=== PATIENT | male | born 1995 | race Asian ===

== ENCOUNTER 2018-12-10 11:13 | Observation (INO) ==
[2018-12-10] MEDS ORDERED: KETOROLAC TROMETHAMINE 15 MG/ML VIAL IV STA (11:27)
[2018-12-10] MEDS ORDERED: SODIUM CHLORIDE 0.9% 1000ML 1,000 ML IV SCH (11:30)
[2018-12-10 11:54] LABS: Basophils # (auto) 0.02 K/uL (0-0.2); Basophils % (auto) 0.2 %; Eosinophils # (auto) 0.02 K/uL (0-0.5); Eosinophils % (auto) 0.2 %; Hematocrit (blood only) 43.7 % (42-52); Hemoglobin 15.1 g/dL (14.0-18.0); Immature Granulocytes # (auto) 0.02 K/uL (0.00-0.02); Immature Granulocytes % (auto) 0.2 %; Lymphocytes % (auto) 9.7 %; Mean Corpuscular Hgb Conc 34.6 g/dL (32-36); Mean Corpuscular Volume 86.5 fL (80-100); Mean Platelet Volume 10.1 fL (7.4-10.4); Monocytes # (auto) 0.77 K/uL (0.11-0.59); Monocytes % (auto) 6.2 %; Neutrophils # (auto) 10.39 K/uL (1.4-6.5); Neutrophils % (auto) 83.5 %; Platelet Count 194 K/uL (130-400); RDW Coefficient of Variation 12.5 % (11.5-14.5); RDW Standard Deviation 39.4 fL (36.4-46.3); Red Blood Count 5.05 M/uL (4.7-6.1); White Blood Count 12.42 K/uL (4.8-10.8)
[2018-12-10 12:12] LABS: Albumin Level 4.2 gm/dl (3.4-5.0); BUN Creatinine Ratio 14.4 (10-20); Calcium 8.8 mg/dl (8.5-10.1); Est GFR (African American) 141.7; Est GFR (Non-African American) 122.2; Potassium 3.2 mmol/L (3.5-5.1)
[2018-12-10 12:14] LABS: Albumin Globulin Ratio 1.2 (0.9-2); Bilirubin,Total 0.8 mg/dl (0.2-1); Globulin 3.4 gm/dl (2.5-4.0); Total Protein 7.6 gm/dl (6.4-8.2)
[2018-12-10 13:11] LABS: Appearance Urine Clear (Clear); Bilirubin Urine Negative (Negative); Color Urine Yellow; Glucose Urine UA Negative (Negative); Ketones Urine 1+ (Negative); Leukocyte Esterase Urine Negative (Negative); Nitrite Urine Negative (Negative); Protein Urine Negative (Negative); Specific Gravity Urine 1.016 (1.000-1.030); Urobilinogen Urine Negative (Negative); pH Urine 7.5 (4.5-7.5)
[2018-12-10] MEDS ORDERED: IOVERSOL 100ml IV PRN (14:16)
--- NOTE | 2018-12-10 14:34 | CT Scan Report ---
CT abd pelvis oral and IV con CLINICAL HISTORY: rlq abd pain COMPARISON STUDY: None. TECHNIQUE: The patient was scanned following administration of dilute oral contrast, and in a dynamic helical fashion during intravenous administration of 94 cc of Optiray 320. A dose lowering techniqu e was utilized adhering to the principles of ALARA. CT DOSE: 286.19 mGy.cm FINDINGS: Lower chest: The heart is normal in size and configuration, without pericardial effusion. The lung ba ses and pleural spaces are clear. Liver: There is minimal periportal edema, likely secondary to hydration. There is a left lobe calcifi cation. There are no hepatic masses. Gallbladder: There is trace pericholecystic fluid. No calculi are visualized. The gallbladder is not distended Spleen: Normal in size and attenuation. Pancreas: Unremarkable. Adrenal glands: Unremarkable. Kidneys: There is symmetric renal cortical enhancement. The kidneys are normal in size without hydron ephrosis. Bowel: There are no transition zones indicate bowel obstruction. There is a mildly dilated fluid-fill ed appendix measuring 8.6 mm. There are significant periappendiceal inflammatory changes. In the sett ing of right lower quadrant abdominal pain, the findings of a mildly dilated fluid-filled appendix mu st be be viewed as suspicious for an early acute appendicitis. Clinical correlation this regard is ad vocated. Peritoneum: There is a small amount of free pelvic fluid. There is no free intraperitoneal air. Vasculature: The abdominal aorta is normal in course and caliber. Adenopathy: None. Pelvic viscera: The bladder, and pelvic viscera are unremarkable. Skeletal structures: No destructive osseous lesions are seen. IMPRESSION: 1. Mildly dilated fluid-filled appendix measuring 8.6 mm in maximal diameter. Despite the absence of significant periappendiceal inflammatory change, in the setting of right lower quadrant abdominal aldo n, the findings must be viewed as moderately suspicious for an early acute appendicitis. Clinical cor relation in this regard is advocated. 2. Small amount of free fluid within the pelvis 3. No evidence of bowel obstruction. No evidence of free air 4. Mild periportal edema, likely secondary to IV hydration 5. Trace pericholecystic fluid. No evidence of gallbladder distention. Electronically signed by: Keron Colvin M.D. 12/10/2018 2:33 PM
[2018-12-10] MEDS ORDERED: cefOXitin 2,000 MG/60 ML BAG IV STA ×2 (14:40→15:45)
--- NOTE | 2018-12-10 15:04 | History & Physical Report ---
Date of Service December 10, 2018 Assessment & Plan (1) Acute appendicitis: 23 year-old male presented to emergency room with complaint of abdominal pain that was present when he woke up this morning. Pain more in mid abdomen and now present in the RLQ. Mild leukocytosis of 12K. Afebrile. Abdomen is soft, tender in the RLQ but no peritonitis. CT scan showing appendix dilated at 8.6 mm but no significant periappendiceal inflammatory changes. Plan: Discussed with patient options of laparoscopic appendectomy possible open as well as conservative treatment with antibiotics. Discussed antibiotics are not routinely utilized in the [place] more so in [place]. Based on his history , examination, elevated WBC at 12K and CT scan showing dilated appendix believe this is an early case of acute appendicitis and would recommend laparoscopic appendectomy. Discussed risks of procedure including bleeding, infection, injury to bowel, post op abscess, blood clots, and cardiopulmonary complications. 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 Patient was trying to contact parents to make decision in regards to surgery. He was given time to make decision in regards to surgery or conservative treatment Patient elected for laparoscopic appendectomy. Informed consent obtained. IV Cefoxitin given in ER Will go to med/surg floor post op Continue NPO Dr. Edwards has seen and examined patient agrees with above. History of Present Illness Primary Care Provider: [facility] Rico is a pleasant 23 year-old male who presented to emergency room with complaint of abdominal pain that began this morning when he woke up. States the pain was more in the mid abdomen and now more so in the RLQ. States he was feeling fine yesterday with no abdominal pain. Never had this type of pain before. Denies of any associated fever, chills, nausea, vomiting, chest pain, shortness of breath, difficulty breathing, changes in bowel habits, diarrhea, constipation, blood in stools, difficulty urinating, or blood in urine. No prior history of abdominal surgery. No home medications. ER work-up included labs which showed mild leukocytosis of 12K and CT scan of abdomen and pelvis with IV and oral contrast shows dilated appendix at 8.5 mm without significant periappendiceal inflammatory changes however early acute appendicitis is considered. Allergies Allergy/AdvReac Type Severity Reaction Status Date / Time No Known Allergies Allergy Verified 12/10/18 12:14 Home Medications Home Medications Medication Instructions Recorded Confirmed Type ibuprofen 200 mg PO QID PRN 12/10/18 12/10/18 History Past Med/Surg History Medical History H/O wisdom tooth extraction No significant medical problems Social History current occupational status: student current occupation: [employer] student Feels Safe at Home: Yes Smoking Status: Current some day smoker Review of Systems All systems reviewed & are unremarkable except as noted in HPI & below Physical Exam 2 Vital Signs (Past 24 Hours): Last Vital Signs Temp 36.8 C 12/10/18 11:16 Pulse 68 12/10/18 13:06 Resp 16 12/10/18 13:06 BP 117/75 12/10/18 11:16 Pulse Ox 100 12/10/18 13:06 Constitutional: WD/WN, vitals as above no acute distress Neck: trachea midline Respiratory: normal respiratory effort, lungs clear to auscultation Cardiovascular: RRR, no murmur, no edema Gastrointestinal (Abdomen): Inspection/Auscultation: abdomen normal to inspection; abdomen not distended Percussion/Palpation: + abdomen tender (RLQ ) and abdomen soft; no guarding and abdomen not rigid Skin: no rashes, warm and dry Psychiatric: A+Ox3, euthymic affect Results & Data Laboratory Results 12/10/18 12/10/18 12/10/18 Range/Units 13:00 11:40 11:40 WBC 12.42 H (4.8-10.8) K/uL RBC 5.05 (4.7-6.1) M/uL Hgb 15.1 (14.0-18.0) g/dL Hct 43.7 (42-52) % MCV 86.5 (80-100) fL MCH 29.9 (25-34) pg MCHC 34.6 (32-36) g/dL RDW Std Deviation 39.4 (36.4-46.3) fL RDW Coeff of Ioana 12.5 (11.5-14.5) % Plt Count 194 (130-400) K/uL MPV 10.1 (7.4-10.4) fL Immature Gran % (Auto) 0.2 % Neut % (Auto) 83.5 % Lymph % (Auto) 9.7 % Person % (Auto) 6.2 % Eos % (Auto) 0.2 % Baso % (Auto) 0.2 % Immature Gran # (Auto) 0.02 (0.00-0.02) K/uL Neut # (Auto) 10.39 H (1.4-6.5) K/uL Lymph # (Auto) 1.20 (1.2-3.4) K/uL Person # (Auto) 0.77 H (0.11-0.59) K/uL Eos # (Auto) 0.02 (0-0.5) K/uL Baso # (Auto) 0.02 (0-0.2) K/uL Sodium 139 (136-145) mmol/L Potassium 3.2 L (3.5-5.1) mmol/L Chloride 108 H (98-107) mmol/L Carbon Dioxide 27 (21-32) mmol/L Anion Gap 4.0 (3-11) BUN 12 (7-18) mg/dl Creatinine 0.86 (0.6-1.4) mg/dl Est Cr Clr Drug Dosing 136.0 ml/min Est GFR ( Amer) 141.7 Est GFR (Non-Af Amer) 122.2 BUN/Creatinine Ratio 14.4 (10-20) Glucose 81 (70-99) mg/dl Calcium 8.8 (8.5-10.1) mg/dl Total Bilirubin 0.8 (0.2-1) mg/dl AST 14 L (15-37) U/L ALT 17 (12-78) U/L Alkaline Phosphatase 47 (45-117) U/L Total Protein 7.6 (6.4-8.2) gm/dl Albumin 4.2 (3.4-5.0) gm/dl Globulin 3.4 (2.5-4.0) gm/dl Albumin/Globulin Ratio 1.2 (0.9-2) Lipase 96 (73-393) U/L Urine Color Yellow Urine Appearance Clear (Clear) Urine pH 7.5 (4.5-7.5) Ur Specific [place] 1.016 (1.000-1.030) Urine Protein Negative (Negative) Urine Glucose (UA) Negative (Negative) Urine Ketones 1+ H (Negative) Urine Blood Negative (Negative) Urine Nitrite Negative (Negative) Urine Bilirubin Negative (Negative) Urine Urobilinogen Negative (Negative) Ur Leukocyte Esterase Negative (Negative) Diagnostic Findings CT abd pelvis oral and IV con CLINICAL HISTORY: rlq abd pain COMPARISON STUDY: None. TECHNIQUE: The patient was scanned following administration of dilute oral contrast, and in a dynamic helical fashion during intravenous administration of 94 cc of Optiray 320. A dose lowering technique was utilized adhering to the principles of ALARA. CT DOSE: 286.19 mGy.cm FINDINGS: Lower chest: The heart is normal in size and configuration, without pericardial effusion. The lung bases and pleural spaces are clear. Liver: There is minimal periportal edema, likely secondary to hydration. There is a left lobe calcification. There are no hepatic masses. Gallbladder: There is trace pericholecystic fluid. No calculi are visualized. The gallbladder is not distended Spleen: Normal in size and attenuation. Pancreas: Unremarkable. Adrenal glands: Unremarkable. Kidneys: There is symmetric renal cortical enhancement. The kidneys are normal in size without hydronephrosis. Bowel: There are no transition zones indicate bowel obstruction. There is a mildly dilated fluid-filled appendix measuring 8.6 mm. There are significant periappendiceal inflammatory changes. In the setting of right lower quadrant abdominal pain, the findings of a mildly dilated fluid-filled appendix must be be viewed as suspicious for an early acute appendicitis. Clinical correlation this regard is advocated. Peritoneum: There is a small amount of free pelvic fluid. There is no free intraperitoneal air. Vasculature: The abdominal aorta is normal in course and caliber. Adenopathy: None. Pelvic viscera: The bladder, and pelvic viscera are unremarkable. Skeletal structures: No destructive osseous lesions are seen. IMPRESSION: 1. Mildly dilated fluid-filled appendix measuring 8.6 mm in maximal diameter. Despite the absence of significant periappendiceal inflammatory change, in the setting of right lower quadrant abdominal pain, the findings must be viewed as moderately suspicious for an early acute appendicitis. Clinical correlation in this regard is advocated. 2. Small amount of free fluid within the pelvis 3. No evidence of bowel obstruction. No evidence of free air 4. Mild periportal edema, likely secondary to IV hydration 5. Trace pericholecystic fluid. No evidence of gallbladder distention. Code Status & VTE Plan VTE Prophylaxis Plan VTE Prophylaxis will be ordered: Yes _ (1) Acute appendicitis Acute appendicitis type: unspecified acute appendicitis type Appendicitis abscess presence: Appendicitis gangrene presence: Appendicitis perforation presence: Qualified Code(s): K35.80 - Unspecified acute appendicitis
--- NOTE | 2018-12-10 15:45 | History & Physical Bridge Note ---
Date of Service December 10, 2018 History & Physical Bridge Note I have examined the patient, reviewed the History & Physical and in the interval since the performance of the History & Physical I have noted the following changes of clinical significance: no changes noted
[2018-12-10] MEDS ORDERED: PROPOFOL IV EMULSION 10 MG/ML 20 ML VIAL IV ONE (16:00)
[2018-12-10] MEDS ORDERED: LIDOCAINE HCL 2% 2 ML VIAL/AMP(20MG/ML) INFIL ONE (16:00)
[2018-12-10] MEDS ORDERED: fentaNYL citrate 100 MCG/2 ML VIAL ONE ×3 (16:00→17:11)
[2018-12-10] MEDS ORDERED: MIDAZOLAM HCL 1 MG/ML 2ML VIAL ONE (16:02)
--- NOTE | 2018-12-10 16:04 | Anesthesiology Consultation ---
Date of Service December 10, 2018 Assessment & Plan (1) Encounter for pre-operative examination: Chart Review Chart Review: Acceptable Risk for Surgery and Patient NOT seen in Pre Admission Testing Consults Requested none ASA ASA2 Proposed Anesthesia Anesthesia Type: General Risk / Benefits Reviewed With: PT / POA / Parent / Guardian, Accepts Plan and Informed Consent Obtained NPO Date Last Intake of Fluids: 12/10/18 Time Last Intake of Fluids: 13:30 Last Intake of Fluids Comment: Contrast dye Date Last Intake of Solids: 12/09/18 Time Last Intake of Solids: 22:00 History Surgery Operation Date: 12/10/18 15:20 Proposed Procedures p Laparoscopic Appendectomy - Herrera Edwards MD Height/Weight Height: 6 ft 2.02 in Weight: 72 kg Allergies Allergy/AdvReac Type Severity Reaction Status Date / Time No Known Allergies Allergy Verified 12/10/18 12:14 Medications Home Medications Medication Instructions Recorded Confirmed Last Taken ibuprofen 200 mg PO QID PRN 12/10/18 12/10/18 12/10/18 09:30 Active Medications Generic Name Dose Route Start Last Admin Trade Name Freq PRN Reason Stop Dose Admin Ioversol 94 ml 12/10/18 14:16 12/10/18 14:17 Optiray 320 100ml IV 12/14/18 14:15 94 ml ONCE PRN Administration Interaction Checking Past Medical History Medical History No significant medical problems Past Surgical History Surgical History H/O wisdom tooth extraction Past Anesthesia History No Hx of Anesthesia Complications History of PONV No Motion Sickness Screening History of Motion Sickness: No Social History Smoking Status: Current some day smoker Do You Dip or Chew Tobacco: No Hx Alcohol Use: Yes alcohol intake frequency: a few times a month Hx Substance Use: No Exercise / Class Metabolic Activity II 4-5 Yardwork/Stairs/Walk up hill Negative for chest pain or shortness of breath. Review of Systems Patient denies active symptoms of GERD,, no n/v. Physical Exam Vital Signs Last Vital Signs Temp 36.8 C 12/10/18 16:07 Pulse 61 12/10/18 16:07 Resp 14 12/10/18 16:07 BP 123/75 12/10/18 16:07 Pulse Ox 100 12/10/18 16:07 Constitutional not obese ENMT Mouth: no TMJ abnormality and oral opening not small Thyromental Distance: < 3.5 Finger Breadths Mallampati Class: I Neck normal visual inspection; neck extension not limited Respiratory normal respiratory effort Auscultation: lungs clear to auscultation bilaterally Cardiovascular Rate/Rhythm: regular rate and regular rhythm Heart Sounds: no murmur Psychiatric A+Ox3, euthymic affect Orientation: alert and oriented x 3 Testing Laboratory Results 12/10/18 11:40 12/10/18 11:40 Urine Color Yellow 12/10/18 13:00 Urine Appearance Clear (Clear) 12/10/18 13:00 Urine pH 7.5 (4.5-7.5) 12/10/18 13:00 Ur Specific [place] 1.016 (1.000-1.030) 12/10/18 13:00 Urine Protein Negative (Negative) 12/10/18 13:00 Urine Glucose (UA) Negative (Negative) 12/10/18 13:00 Urine Ketones 1+ (Negative) H 12/10/18 13:00 Urine Nitrite Negative (Negative) 12/10/18 13:00 Ur Leukocyte Esterase Negative (Negative) 12/10/18 13:00
[2018-12-10] MEDS ORDERED: BUPIVACAINE 0.5 % 5 MG/1 ML MPF 30ML VIAL ONE (16:14)
[2018-12-10] MEDS ORDERED: BACITRACIN OINT 15 GM TUBE ONE (16:14)
[2018-12-10] MEDS ORDERED: LIDOCAINE HCL 1% 20 ML VIAL ONE (16:15)
[2018-12-10] MEDS ORDERED: ATROPINE SULFATE 0.1 MG/ML 10ML SYR IV PRN (16:31)
[2018-12-10] MEDS ORDERED: ePHEDrine sulfate 50 MG/ML AMP IV PRN (16:31)
[2018-12-10] MEDS ORDERED: HYDROmorphone INJ 1 MG/ML SYRINGE IV PRN (16:31)
[2018-12-10] MEDS ORDERED: ONDANSETRON INJ 2 MG/ML 2 ML VIAL IV PRN ×2 (16:31→17:33)
[2018-12-10] MEDS ORDERED: fentaNYL citrate 100 MCG/2 ML VIAL IV PRN (16:31)
--- NOTE | 2018-12-10 16:43 | Emergency Department Note ---
Entered by Checo Billings acting as a scribe for History of Present Illness General Chief complaint: Abdominal Pain Stated complaint: CONSTANT PAIN IN ABDONIN Source: patient Limitations: no limitations History of Present Illness Provider complaint: Abd Pain Onset (ago): hour(s) Location: abdomen Pain Consistency: + constant Current Pain Intensity: 7 Relieved By: + medication (Ibuprofen) Exacerbated By: + none Associated symptoms: + cough; no nausea/vomiting Treatments prior to arrival: other (Ibuprofen) The patient is a 23 year old male who presents to the Emergency Room with complaints of constant abdominal pain that began this morning. The patient states that when he woke up this morning he felt pain in his central abdomen, which has sensed migrated into the right lower quadrant. He rates the current pain as a 7/10 in severity. He denies any nausea or vomiting aside from the pain. The patient did take an Ibuprofen this morning, which is helping minimally. He does have a slight cough. Home Medications Home Medications Medication Instructions Recorded Confirmed Type ibuprofen 200 mg PO QID PRN 12/10/18 12/10/18 History Allergies Allergy/AdvReac Type Severity Reaction Status Date / Time No Known Allergies Allergy Verified 12/10/18 12:14 Past Med/Surg History Medical History No significant medical problems Surgical History H/O wisdom tooth extraction Social History current occupational status: student current occupation: [employer] student Feels Safe at Home: Yes Smoking Status: Current some day smoker Do You Dip or Chew Tobacco: No Hx Alcohol Use: Yes Alcohol Intake Frequency: a few times a month Hx Substance Use: No Review of Systems See HPI for pertinent positives & negatives. and A total of 10 systems reviewed and were otherwise negative Physical Exam Vital Signs Vital Signs - 24 hr 12/10/18 11:16 12/10/18 11:40 12/10/18 13:06 Temperature 36.8 C Temperature Source Oral Sepsis Recent Fever Within 48 Hours No Sepsis New/Unexplained Change in Mental Status No Sepsis Action Taken by Nursing No Action Required Pulse Rate 64 Pulse Rate [Apical] 68 Pulse Rhythm [Apical] Pulse Strength [Apical] Respiratory Rate 16 16 Respiratory Effort / Characteristics Respiratory Depth Respiratory Pattern Blood Pressure 117/75 Blood Pressure [Left Arm] Blood Pressure Mean 89 Blood Pressure Mean [Left Arm] Blood Pressure Position [Left Arm] Pulse Oximetry 97 99 100 Oxygen Delivery Method Room Air Room Air Room Air 12/10/18 15:57 12/10/18 16:07 Temperature 36.8 C Temperature Source Oral Sepsis Recent Fever Within 48 Hours Sepsis New/Unexplained Change in Mental Status Sepsis Action Taken by Nursing Pulse Rate 71 Pulse Rate [Apical] 61 Pulse Rhythm [Apical] Regular Pulse Strength [Apical] Normal Respiratory Rate 19 14 Respiratory Effort / Characteristics Non-Labored Spontaneous Respiratory Depth Normal Respiratory Pattern Regular Blood Pressure 115/69 Blood Pressure [Left Arm] 123/75 Blood Pressure Mean Blood Pressure Mean [Left Arm] 91 Blood Pressure Position [Left Arm] Lying Pulse Oximetry 99 100 Oxygen Delivery Method Room Air Room Air GENERAL: Sitting up in bed, alert, well appearing, well nourished, no distress, non-toxic EYE EXAM: normal conjunctiva. OROPHARYNX: no exudate, no erythema, lips, buccal mucosa, and tongue normal and mucous membranes are moist NECK: supple, no nuchal rigidity, no adenopathy, non-tender LUNGS: Clear to auscultation. Normal chest wall mechanics HEART: no murmurs, S1 normal and S2 normal ABDOMEN: abdomen soft, tenderness to palpation in the RLQ, normo-active bowel, sounds, no masses, no rebound or guarding. BACK: Back is symmetrical on inspection and there is no deformity, no midline tenderness, no CVA tenderness. SKIN: no rashes and no bruising UPPER EXTREMITIES: upper extremities are grossly normal. LOWER EXTREMITIES: No pitting edema. NEURO EXAM: Normal sensorium, cranial nerves II-XII grossly intact, normal speech, no gross weakness of arms, no gross weakness of legs. Course ED COURSE: Vital signs were reviewed and showed normal vitals. The patients medical record was reviewed The above diagnostic studies were performed and reviewed. ED treatments and interventions as stated above. 1123: The patient was evaluated in room C12B. A complete history and physical examination was performed. 1440: I reviewed the patient's case with Erika Wolff - General Surgery LILIA Rain. She will evaluate the patient for further management and likely take to the OR. 1441: Upon reevaluation, the patient is resting in bed. I discussed my findings with the patient and she understands and agrees with the treatment plan. Based on the patients age, coexisting illnesses, exam and lab findings the decision to treat as an inpatient was made. The patient remained stable while under my care. The patient will be evaluated for further management. Administered Medications Ioversol (Optiray 320 100ml) 94 ml IV ONCE PRN PRN Reason: Interaction Checking Stop: 12/14/18 14:15 Last Admin: 12/10/18 14:17 Dose: 94 ml Discontinued Medications Sodium Chloride (Nss 1000ml) 1,000 mls @ 999 mls/hr IV .[id number] MIRANDA Stop: 12/10/18 12:30 Last Infusion: 12/10/18 12:37 Dose: 0 mls/hr Admin: 12/10/18 11:48 Dose: 999 mls/hr Cefoxitin Sodium (Mefoxin) 2,000 mg in 60 mls @ 100 mls/hr IV NOW STA Stop: 12/10/18 15:15 Last Infusion: 12/10/18 15:27 Dose: 0 mls/hr Admin: 12/10/18 14:54 Dose: 100 mls/hr Ketorolac Tromethamine (Toradol) 15 mg IV NOW STA Stop: 12/10/18 11:28 Last Admin: 12/10/18 11:48 Dose: 15 mg Medical Decision Making Differential Diagnosis Differential diagnosis: Etiologies such as biliary colic, cholecystitis, hepatitis, pancreatitis, cardiac disease, pancreatitis, gastritis, peptic ulcer disease, appendicitis, cystitis, diverticulitis, mesenteric ischemia, inflammatory bowel disease, ileus , bowel obstruction, testicular torsion, aortic pathology, shingles, as well as others were considered. Medical Records Attestation: I reviewed the patient's medical records. Home Medications Current Medication List: was personally reviewed by me Laboratory Data Attestation: I reviewed the patient's lab results. Result diagrams: 12/10/18 11:40 12/10/18 11:40 Lab Results 12/10/18 12/10/18 12/10/18 Range/Units 11:40 11:40 13:00 WBC 12.42 H (4.8-10.8) K/uL RBC 5.05 (4.7-6.1) M/uL Hgb 15.1 (14.0-18.0) g/dL Hct 43.7 (42-52) % MCV 86.5 (80-100) fL MCH 29.9 (25-34) pg MCHC 34.6 (32-36) g/dL RDW Std Deviation 39.4 (36.4-46.3) fL RDW Coeff of Ioana 12.5 (11.5-14.5) % Plt Count 194 (130-400) K/uL MPV 10.1 (7.4-10.4) fL Immature Gran % (Auto) 0.2 % Neut % (Auto) 83.5 % Lymph % (Auto) 9.7 % [place] % (Auto) 6.2 % Eos % (Auto) 0.2 % Baso % (Auto) 0.2 % Immature Gran # (Auto) 0.02 (0.00-0.02) K/uL Neut # (Auto) 10.39 H (1.4-6.5) K/uL Lymph # (Auto) 1.20 (1.2-3.4) K/uL [place] # (Auto) 0.77 H (0.11-0.59) K/uL Eos # (Auto) 0.02 (0-0.5) K/uL Baso # (Auto) 0.02 (0-0.2) K/uL Sodium 139 (136-145) mmol/L Potassium 3.2 L (3.5-5.1) mmol/L Chloride 108 H (98-107) mmol/L Carbon Dioxide 27 (21-32) mmol/L Anion Gap 4.0 (3-11) BUN 12 (7-18) mg/dl Creatinine 0.86 (0.6-1.4) mg/dl Est Cr Clr Drug Dosing 136.0 ml/min Est GFR ( Amer) 141.7 Est GFR (Non-Af Amer) 122.2 BUN/Creatinine Ratio 14.4 (10-20) Glucose 81 (70-99) mg/dl Calcium 8.8 (8.5-10.1) mg/dl Total Bilirubin 0.8 (0.2-1) mg/dl AST 14 L (15-37) U/L ALT 17 (12-78) U/L Alkaline Phosphatase 47 (45-117) U/L Total Protein 7.6 (6.4-8.2) gm/dl Albumin 4.2 (3.4-5.0) gm/dl Globulin 3.4 (2.5-4.0) gm/dl Albumin/Globulin Ratio 1.2 (0.9-2) Lipase 96 (73-393) U/L Urine Color Yellow Urine Appearance Clear (Clear) Urine pH 7.5 (4.5-7.5) Ur Specific [place] 1.016 (1.000-1.030) Urine Protein Negative (Negative) Urine Glucose (UA) Negative (Negative) Urine Ketones 1+ H (Negative) Urine Blood Negative (Negative) Urine Nitrite Negative (Negative) Urine Bilirubin Negative (Negative) Urine Urobilinogen Negative (Negative) Ur Leukocyte Esterase Negative (Negative) Imaging Data Attestation: I personally reviewed and interpreted this imaging study as follows : Radiologist's Impression: CT abd pelvis oral and IV con CLINICAL HISTORY: rlq abd pain COMPARISON STUDY: None. TECHNIQUE: The patient was scanned following administration of dilute oral contrast, and in a dynamic helical fashion during intravenous administration of 94 cc of Optiray 320. A dose lowering technique was utilized adhering to the principles of ALARA. CT DOSE: 286.19 mGy.cm FINDINGS: Lower chest: The heart is normal in size and configuration, without pericardial effusion. The lung bases and pleural spaces are clear. Liver: There is minimal periportal edema, likely secondary to hydration. There is a left lobe calcification. There are no hepatic masses. Gallbladder: There is trace pericholecystic fluid. No calculi are visualized. The gallbladder is not distended Spleen: Normal in size and attenuation. Pancreas: Unremarkable. Adrenal glands: Unremarkable. Kidneys: There is symmetric renal cortical enhancement. The kidneys are normal in size without hydronephrosis. Bowel: There are no transition zones indicate bowel obstruction. There is a mildly dilated fluid-filled appendix measuring 8.6 mm. There are significant periappendiceal inflammatory changes. In the setting of right lower quadrant abdominal pain, the findings of a mildly dilated fluid-filled appendix must be be viewed as suspicious for an early acute appendicitis. Clinical correlation this regard is advocated. Peritoneum: There is a small amount of free pelvic fluid. There is no free intraperitoneal air. Vasculature: The abdominal aorta is normal in course and caliber. Adenopathy: None. Pelvic viscera: The bladder, and pelvic viscera are unremarkable. Skeletal structures: No destructive osseous lesions are seen. IMPRESSION: 1. Mildly dilated fluid-filled appendix measuring 8.6 mm in maximal diameter. Despite the absence of significant periappendiceal inflammatory change, in the setting of right lower quadrant abdominal pain, the findings must be viewed as moderately suspicious for an early acute appendicitis. Clinical correlation in this regard is advocated. 2. Small amount of free fluid within the pelvis 3. No evidence of bowel obstruction. No evidence of free air 4. Mild periportal edema, likely secondary to IV hydration 5. Trace pericholecystic fluid. No evidence of gallbladder distention. Electronically signed by: Keron Colvin M.D. 12/10/2018 2:33 PM Blood Pressure Blood Pressure Findings: Normal blood pressure MDM Narrative Patient is a 23-year-old male who presents the ER for abdominal pain in the right lower quadrant was started earlier this morning. Vitals are stable. Labs show a leukocytosis of 12.5 thousand. BMP with mild hypokalemia. LFTs and lipase was normal. UA was negative. CT of the abdomen pelvis confirms acute appendicitis. Patient was given IV fluids and Ceftin. Patient was updated bedside, discussed with general surgery and admitted for further workup to go to the OR. Impression & Plan Acute appendicitis Discharge Plan Visit Data *Final* Discharge Date/Time: 12/10/18 15:57 Chief Complaint: Abdominal Pain Stated Complaint: CONSTANT PAIN IN ABDONIN ED Provider: Kaushik Correa Discharge Problem: Acute appendicitis Patient Disposition: Admitted As Inpatient Discharge Instructions Interventions: ED Discharge Assessment Last Done: 12/10/18 15:57 The scribe's documentation has been prepared under my direction and personally reviewed by me in its entirety. I confirm that the note above accurately reflects all work, treatment, procedures, and medical decision making performed by me.
[2018-12-10] MEDS ORDERED: GLYCOPYRROLATE 0.2 MG/ML VIAL ONE (17:27)
[2018-12-10] MEDS ORDERED: DEXAMETHASONE SOD INJ 4 MG/ML VIAL ONE (17:27)
[2018-12-10] MEDS ORDERED: NEOSTIGMINE METHYLSULFATE 5 MG/5 ML SYR ONE (17:27)
--- NOTE | 2018-12-10 17:33 | Post Operative Brief Note ---
Immediate Post Op Note v1 Date of Surgery December 10, 2018 Pre & Post Diagnosis Operation Date: 12/10/18 15:20 Pre-Op Diagnosis: Acute appendicitis Post-Op Diagnosis: Acute appendicitis Procedure Operation Date: 12/10/18 15:20 Actual Procedures p Laparoscopic Appendectomy(Not Applicable) - Herrera Edwards MD Surgeon Herrera Edwards MD Psychiatric Social Worker Supervisor ophthalmic surgical assistant Estimated Blood Loss 5 Findings Consistent with Post-Op Diagnosis Fluids 1000ml Specimens appendix Anesthesia Type General Complications none Disposition Accompanied Patient To Recovery: Yes Disposition: Recovery Room Overlapping Procedure I was immediately available: during the entire case.
[2018-12-10] MEDS ORDERED: HYDROmorphone INJ 0.5 MG/0.5 ML SYR IV PRN (17:36)
[2018-12-10] MEDS ORDERED: OXYCODONE/ACETAMINOPHEN 5mg/325mg TAB PO PRN (17:36)
[2018-12-10] MEDS ORDERED: MEPERIDINE HCL 25 MG/ML CARP IV PRN (17:50)
[2018-12-10] MEDS ORDERED: MEPERIDINE HCL 25 MG/ML CARP ONE (17:50)
--- NOTE | 2018-12-10 18:05 | Anesthesiology Progress Note ---
Date of Service December 10, 2018 Anesthesia Post Procedure Vital Signs Vital Signs: Temp Pulse Pulse Resp BP BP Pulse Ox 12/10/18 17:42 36.7 C 67 18 132/88 100 12/10/18 16:07 36.8 C 61 14 123/75 100 12/10/18 15:57 71 19 115/69 99 12/10/18 13:06 68 16 100 12/10/18 11:40 99 12/10/18 11:16 36.8 C 64 16 117/75 97 Pain Intensity Abdomen: Pain Intensity: 4 Notes Mental Status: alert / awake / arousable and participated in evaluation Patient Amnestic to Procedure: Yes Nausea / Vomiting: adequately controlled Pain: adequately controlled Airway Patency, RR, SpO2: stable & adequate BP & HR: stable & adequate Hydration State: stable & adequate Anesthetic Complications: no major complications apparent and Pt Satisfied with anesthetic care
[2018-12-10] MEDS: D5W AND 1/2NSS + 20MEQ KCL 20 MEQ/1,000 ML BAG IV SCH (19:34)
--- NOTE | 2018-12-10 22:20 | Operative Report ---
DATE OF OPERATION: 12/10/2018 PREOPERATIVE DIAGNOSIS: Acute appendicitis. POSTOPERATIVE DIAGNOSIS: Acute appendicitis. PROCEDURE: Laparoscopic appendectomy. SURGEON: Dr. Herrera Edwards. ANESTHESIA: General. ESTIMATED BLOOD LOSS: About 5 mL. FINDINGS: Acute appendicitis. COMPLICATIONS: None. INDICATIONS FOR THE PROCEDURE: This is a 23-year-old gentleman who presented to the ED with 1 day history of right lower quadrant pain. The patient had a CT scan diagnosis of acute appendicitis. We decided to take the patient to the OR, do a laparoscopy, appendectomy, possible open. I did talk to the patient about the benefit, the risk, and alternate procedure. I indicated the risks may include but not limited such as bleeding, infection, abscess, injury to the bowel, and even . The patient understands. He signed informed consent and I answered all questions. DETAILS OF PROCEDURE: We brought the patient to the OR, put the patient in the supine position. The patient received SCD on bilateral legs to prevent DVT. Also, the patient received 2 g cefoxitin IV for prophylactic antibiotic. The patient received general anesthesia without difficulty. Then the patient received Cortés catheter insertion. The abdomen was prepped and draped in routine sterile fashion. After time out, I injected the local anesthesia by using 1% lidocaine mixed with 0.5% Marcaine just above umbilicus. Then I made a small incision just above umbilicus, opened fascia and opened peritoneum under direct vision, put a Olivia trocar in, connected to CO2 to create pneumoperitoneum. Flow rate at 6 liter per minute. Pressure not more than 14 mmHg. Once we got a nice pneumoperitoneum, we put a camera in, looked around the abdomen showing normal finding on the small bowel, large bowel; however, the appendix showed significant inflammation, enlarged, confirming the diagnosis of acute appendicitis. Then, we put another two 5 mm trocar on the left lower quadrant area. Once all trocars were in, we put a grasper, hold the appendix, used the harmonic to take down the appendix, rechecked, no active bleeding. Then, we used a 45 mm Endo-ARELY stapler, transection on the base of the appendix, rechecked the staple line, it was intact. No leak, no active bleeding. Then we removed the appendix through the catch bag. Then we reinserted Olivia trocar in, connected to CO2 to create pneumoperitoneum, again looked around the abdomen. Staple line was intact. No active bleeding and no leak. Then we removed all trocars under direct vision. No active bleeding from the trocar sites. Pneumoperitoneum was released. Then I closed the umbilical incision, fascial layer by using #1 Vicryl [id number] x2, closed subcutaneous layer by using 2-0 Vicryl interrupted and closed skin by using 4-0 Vicryl continuous running, closed another two 5 mm trocars at the skin only by using 4-0 Vicryl. Then we put the dressing on. The patient tolerated the procedure well. All instrument, needle and sponge count were correct x2 at the end of the case. The patient transferred to recovery room in stable condition. The specimen sent to pathology. I attest to the content of the Intraoperative Record and any orders documented therein. Any exception s are noted below.
[2018-12-11] MEDS: D5W AND 1/2NSS + 20MEQ KCL 20 MEQ/1,000 ML BAG IV SCH (05:59)
[2018-12-11 07:38] LABS: Basophils # (auto) 0.01 K/uL (0-0.2); Basophils % (auto) 0.1 %; Hematocrit (blood only) 40.8 % (42-52); Hemoglobin 13.9 g/dL (14.0-18.0); Immature Granulocytes # (auto) 0.01 K/uL (0.00-0.02); Immature Granulocytes % (auto) 0.1 %; Lymphocytes % (auto) 13.3 %; Mean Corpuscular Hgb Conc 34.1 g/dL (32-36); Mean Platelet Volume 10.4 fL (7.4-10.4); Monocytes # (auto) 0.81 K/uL (0.11-0.59); Monocytes % (auto) 7.7 %; Neutrophils # (auto) 8.32 K/uL (1.4-6.5); Neutrophils % (auto) 78.8 %; Platelet Count 196 K/uL (130-400); RDW Coefficient of Variation 12.5 % (11.5-14.5); RDW Standard Deviation 39.7 fL (36.4-46.3); Red Blood Count 4.69 M/uL (4.7-6.1); White Blood Count 10.55 K/uL (4.8-10.8)
--- NOTE | 2018-12-11 09:46 | Anesthesiology Progress Note ---
Date of Service December 11, 2018 Anesthesia Post Procedure Vital Signs Vital Signs: Temp Pulse Pulse Pulse Resp BP BP 12/11/18 07:10 37 C 67 16 12/11/18 04:45 36.7 C 76 16 109/65 12/10/18 23:02 37 C 66 16 108/64 12/10/18 21:53 37.5 C 60 18 120/76 12/10/18 20:50 37.1 C 68 18 115/70 12/10/18 19:45 37 C 67 16 111/72 12/10/18 18:45 37.1 C 62 16 115/71 12/10/18 18:26 58 L 19 126/76 12/10/18 18:25 57 L 14 12/10/18 18:21 36.9 C 57 L 23 123/80 12/10/18 18:20 62 14 12/10/18 18:16 57 L 16 128/79 12/10/18 18:15 58 L 16 12/10/18 18:11 59 L 18 125/84 12/10/18 18:10 58 L 20 12/10/18 18:06 60 18 134/79 12/10/18 18:05 62 18 12/10/18 18:01 58 L 12 129/83 12/10/18 18:00 60 17 12/10/18 17:55 59 L 13 134/91 12/10/18 17:51 65 13 122/82 12/10/18 17:50 64 14 12/10/18 17:46 68 21 131/85 12/10/18 17:45 67 17 12/10/18 17:44 69 14 12/10/18 17:43 73 17 132/88 12/10/18 17:42 36.7 C 67 18 132/88 12/10/18 17:15 36.8 C 66 16 114/75 12/10/18 16:07 36.8 C 61 14 123/75 12/10/18 15:57 71 19 115/69 12/10/18 13:06 68 16 12/10/18 11:40 12/10/18 11:16 36.8 C 64 16 117/75 BP Pulse Ox 12/11/18 07:10 106/68 99 12/11/18 04:45 97 12/10/18 23:02 98 12/10/18 21:53 99 12/10/18 20:50 99 12/10/18 19:45 97 12/10/18 18:45 98 12/10/18 18:26 99 12/10/18 18:25 100 12/10/18 18:21 99 12/10/18 18:20 100 12/10/18 18:16 100 12/10/18 18:15 100 12/10/18 18:11 99 12/10/18 18:10 99 12/10/18 18:06 100 12/10/18 18:05 99 12/10/18 18:01 100 12/10/18 18:00 100 12/10/18 17:55 100 12/10/18 17:51 100 12/10/18 17:50 100 12/10/18 17:46 100 12/10/18 17:45 100 12/10/18 17:44 100 12/10/18 17:43 100 12/10/18 17:42 100 12/10/18 17:15 94 12/10/18 16:07 100 12/10/18 15:57 99 12/10/18 13:06 100 12/10/18 11:40 99 12/10/18 11:16 97 Pain Intensity Abdomen: Pain Intensity: 3 Notes Mental Status: alert / awake / arousable and participated in evaluation Patient Amnestic to Procedure: Yes Nausea / Vomiting: see Notes below Pain: adequately controlled Airway Patency, RR, SpO2: stable & adequate BP & HR: stable & adequate Hydration State: stable & adequate Anesthetic Complications: no major complications apparent and Pt Satisfied with anesthetic care
--- NOTE | 2018-12-11 10:10 | Surgery Progress Note ---
Date of Service December 11, 2018 Assessment & Plan (1) Acute appendicitis: POD # 1 s/p lap appy -vss, afebrile - post op pain minimal, controlled - no n/v - abdomen soft, nondistended Plan: Discharge home today Discharge instructions reviewed Rx for Percocet as needed F/u surgical office 1-[address] Edwards has seen pt, agrees with above Subjective feeling well, preop pain resolved tender at incision sites no n/v, tolerated clear liquids pain controlled urinating without difficulty ambulating hallway Physical Exam 2 Vital Signs (Past 24 Hours): Last Vital Signs Temp 37 C 12/11/18 07:10 Pulse 67 12/11/18 07:10 Resp 16 12/11/18 07:10 BP 106/68 12/11/18 07:10 Pulse Ox 99 12/11/18 07:10 Constitutional: WD/WN, vitals as above no acute distress Respiratory: normal respiratory effort; no respiratory distress Gastrointestinal (Abdomen): Inspection/Auscultation: abdomen normal to inspection; abdomen not distended Percussion/Palpation: + abdomen tender (at incision sites appropriate post op) and abdomen soft; no guarding and abdomen not rigid Skin: no rashes, warm and dry + incision (covered with dressings c/d/i, mild spotting at supraumbilical dressing) Psychiatric: A+Ox3, euthymic affect Results & Data Laboratory Results 12/11/18 12/10/18 12/10/18 Range/Units 07:14 13:00 11:40 WBC 10.55 (4.8-10.8) K/uL RBC 4.69 L (4.7-6.1) M/uL Hgb 13.9 L (14.0-18.0) g/dL Hct 40.8 L (42-52) % MCV 87.0 (80-100) fL MCH 29.6 (25-34) pg MCHC 34.1 (32-36) g/dL RDW Std Deviation 39.7 (36.4-46.3) fL RDW Coeff of Ioana 12.5 (11.5-14.5) % Plt Count 196 (130-400) K/uL MPV 10.4 (7.4-10.4) fL Immature Gran % (Auto) 0.1 % Neut % (Auto) 78.8 % Lymph % (Auto) 13.3 % [place] % (Auto) 7.7 % Eos % (Auto) 0.0 % Baso % (Auto) 0.1 % Immature Gran # (Auto) 0.01 (0.00-0.02) K/uL Neut # (Auto) 8.32 H (1.4-6.5) K/uL Lymph # (Auto) 1.40 (1.2-3.4) K/uL [place] # (Auto) 0.81 H (0.11-0.59) K/uL Eos # (Auto) 0.00 (0-0.5) K/uL Baso # (Auto) 0.01 (0-0.2) K/uL Sodium 139 (136-145) mmol/L Potassium 3.2 L (3.5-5.1) mmol/L Chloride 108 H (98-107) mmol/L Carbon Dioxide 27 (21-32) mmol/L Anion Gap 4.0 (3-11) BUN 12 (7-18) mg/dl Creatinine 0.86 (0.6-1.4) mg/dl Est Cr Clr Drug Dosing 136.0 ml/min Est GFR ( Amer) 141.7 Est GFR (Non-Af Amer) 122.2 BUN/Creatinine Ratio 14.4 (10-20) Glucose 81 (70-99) mg/dl Calcium 8.8 (8.5-10.1) mg/dl Total Bilirubin 0.8 (0.2-1) mg/dl AST 14 L (15-37) U/L ALT 17 (12-78) U/L Alkaline Phosphatase 47 (45-117) U/L Total Protein 7.6 (6.4-8.2) gm/dl Albumin 4.2 (3.4-5.0) gm/dl Globulin 3.4 (2.5-4.0) gm/dl Albumin/Globulin Ratio 1.2 (0.9-2) Lipase 96 (73-393) U/L Urine Color Yellow Urine Appearance Clear (Clear) Urine pH 7.5 (4.5-7.5) Ur Specific [place] 1.016 (1.000-1.030) Urine Protein Negative (Negative) Urine Glucose (UA) Negative (Negative) Urine Ketones 1+ H (Negative) Urine Blood Negative (Negative) Urine Nitrite Negative (Negative) Urine Bilirubin Negative (Negative) Urine Urobilinogen Negative (Negative) Ur Leukocyte Esterase Negative (Negative) 12/10/18 Range/Units 11:40 WBC 12.42 H (4.8-10.8) K/uL RBC 5.05 (4.7-6.1) M/uL Hgb 15.1 (14.0-18.0) g/dL Hct 43.7 (42-52) % MCV 86.5 (80-100) fL MCH 29.9 (25-34) pg MCHC 34.6 (32-36) g/dL RDW Std Deviation 39.4 (36.4-46.3) fL RDW Coeff of Ioana 12.5 (11.5-14.5) % Plt Count 194 (130-400) K/uL MPV 10.1 (7.4-10.4) fL Immature Gran % (Auto) 0.2 % Neut % (Auto) 83.5 % Lymph % (Auto) 9.7 % [place] % (Auto) 6.2 % Eos % (Auto) 0.2 % Baso % (Auto) 0.2 % Immature Gran # (Auto) 0.02 (0.00-0.02) K/uL Neut # (Auto) 10.39 H (1.4-6.5) K/uL Lymph # (Auto) 1.20 (1.2-3.4) K/uL [place] # (Auto) 0.77 H (0.11-0.59) K/uL Eos # (Auto) 0.02 (0-0.5) K/uL Baso # (Auto) 0.02 (0-0.2) K/uL Sodium (136-145) mmol/L Potassium (3.5-5.1) mmol/L Chloride (98-107) mmol/L Carbon Dioxide (21-32) mmol/L Anion Gap (3-11) BUN (7-18) mg/dl Creatinine (0.6-1.4) mg/dl Est Cr Clr Drug Dosing ml/min Est GFR ( Amer) Est GFR (Non-Af Amer) BUN/Creatinine Ratio (10-20) Glucose (70-99) mg/dl Calcium (8.5-10.1) mg/dl Total Bilirubin (0.2-1) mg/dl AST (15-37) U/L ALT (12-78) U/L Alkaline Phosphatase (45-117) U/L Total Protein (6.4-8.2) gm/dl Albumin (3.4-5.0) gm/dl Globulin (2.5-4.0) gm/dl Albumin/Globulin Ratio (0.9-2) Lipase (73-393) U/L Urine Color Urine Appearance (Clear) Urine pH (4.5-7.5) Ur Specific [place] (1.000-1.030) Urine Protein (Negative) Urine Glucose (UA) (Negative) Urine Ketones (Negative) Urine Blood (Negative) Urine Nitrite (Negative) Urine Bilirubin (Negative) Urine Urobilinogen (Negative) Ur Leukocyte Esterase (Negative) _ (1) Acute appendicitis Acute appendicitis type: unspecified acute appendicitis type Appendicitis abscess presence: Appendicitis gangrene presence: Appendicitis perforation presence: Qualified Code(s): K35.80 - Unspecified acute appendicitis
--- NOTE | 2018-12-12 12:11 | Discharge Summary ---
Date of Service December 12, 2018 Admission HPI Per Admitting Provider Rico is a pleasant 23 year-old male who presented to emergency room with complaint of abdominal pain that began this morning when he woke up. States the pain was more in the mid abdomen and now more so in the RLQ. States he was feeling fine yesterday with no abdominal pain. Never had this type of pain before. Denies of any associated fever, chills, nausea, vomiting, chest pain, shortness of breath, difficulty breathing, changes in bowel habits, diarrhea, constipation, blood in stools, difficulty urinating, or blood in urine. No prior history of abdominal surgery. No home medications. ER work-up included labs which showed mild leukocytosis of 12K and CT scan of abdomen and pelvis with IV and oral contrast shows dilated appendix at 8.5 mm without significant periappendiceal inflammatory changes however early acute appendicitis is considered. Principal Diagnosis Acute Appendicitis Discharge Exam Constitutional WD/WN, vitals as above no acute distress Neck trachea midline Respiratory normal respiratory effort, lungs clear to auscultation normal respiratory effort; no respiratory distress Cardiovascular RRR, no murmur, no edema Gastrointestinal (Abdomen) Inspection/Auscultation: abdomen normal to inspection; abdomen not distended Percussion/Palpation: + abdomen tender (at incision sites appropriate post op) and abdomen soft; no guarding and abdomen not rigid Skin no rashes, warm and dry + incision (covered with dressings c/d/i, mild spotting at supraumbilical dressing) Psychiatric A+Ox3, euthymic affect Discharge Data Allergies Allergy/AdvReac Type Severity Reaction Status Date / Time No Known Allergies Allergy Verified 12/10/18 12:14 Consultations 12/10/18 14:39 ED Decision to Admit Stat Procedures Performed Operation Date: 12/10/18 15:20 Actual Procedures p Laparoscopic Appendectomy(Not Applicable) - Herrera Edwards MD Ordered Studies 12/10/18 11:27 CT abd pelvis oral and IV con Stat Hospital Course (1) Acute appendicitis: Patient was taken to operating room for laparoscopic appendectomy possible open. Patient was found to have acute appendicitis without perforation or abscess. Patient tolerated procedure well and was transferred to recovery room and then to medical/surgical floor for post op care. Started on IV fluids, IV pain medication with PO Percocet, IV Zofran prn nausea, clear liquid diet, activity as tolerated, SCDs for DVT prophylaxis. POD # 1, vss, afebrile, pain controlled, no n/v, urinating without difficulty. Patient was discharged home on POD # 1 in stable condition. Total Time Total Time Spent Total Time Spent (In Minutes): 30 Total Time Includes: Examination of the Patient, Discharge Planning and Medication Reconciliation Discharge Plan Discharge Items Patient Disposition: Home - Self-Care Reason For Visit: ACUTE APPENDICITIS Discharge Diagnosis: same Discharge Goals: Decrease discomfort and Improve function Activity: Per 'Additional Instructions' section Non-emergency contact: Surgeon Call non-emergency contact if: your symptoms worsen, your pain is not controlled , your pain is worsening, your pain is unusual for you, you have a fever, your temperature is above 101, your wound has increased redness and your wound has increased drainage Follow-up/Referrals: [facility] [Primary Care Provider] - Diet: Regular Diet Comment: Increase diet to regular diet as tolerated Addtl Provider Instructions: No heavy lifting over 20 pounds for 4 weeks No strenuous activity until cleared by surgeon No submerging incisions underwater for 2 weeks (no swimming, bathing, or hot tubs) No driving while taking narcotic pain medication or until you are pain free You may shower in 3 days, sponge bath and wash hair in meantime. Keep dressing dry. After 3 days you may shower and remove outer dressings. Leave steri strips on incisions for 7 days and then remove. They may fall off on their own that is okay. Walking and light activity is encouraged daily to prevent blood clots from forming in your legs You will be given prescription for narcotic pain medication (Percocet) as needed for moderate to severe pain. Take as directed. This medication may cause drowsiness or constipation. You may take extra strength Ibuprofen as needed for mild pain. -Can take 600 mg of Ibuprofen every 6 hours as needed Avoid Tylenol with Percocet as Percocet has Tylenol in it To avoid constipation: drink plenty of liquids daily, avoid foods that constipate, daily walking. You may take OTC stool softener (Colace) daily or twice a day while taking pain medication. If those measures do not work, you may take Miralax or Milk of Magnesia. Follow-up in surgical office in 1-2 weeks, please call office at [phone] to make an appointment Prescriptions: New oxycodone-acetaminophen [Percocet] 5-325 mg Tablet 1 tab PO Q4H PRN (Reason: pain) Qty: 18 RF: 0 Continue ibuprofen 200 mg Tablet 200 mg PO QID PRN (Reason: Pain) RF: 0 Stand-Alone Forms: My [facility], Work/School Release (Inpt) Discharge Orders: Discharge Order (Routine); Ordered 12/11/18 Ordered By: Erika Wolff Admission Data Admit Date/Time: 12/10/18 17:33 Attending Provider: Herrera Edwards Admit Provider: Herrera Edwards Primary Care Provider: [facility] Other Providers: Herrera Edwards Service: Surgical Services Other Interventions: Discharge Summary Assessment (RN) Last Done: 12/11/18 10:12 Pending Studies at Discharge: Yes (Appendix pathology, will be reviewed at follow-up visit) DC Date/Time DO NOT enter until pt leaves facility: 12/11/18 11:42
== END 2018-12-11 11:42 | disposition home or self-care (01) ==
LOC: ED 11:13 → 3W 15:57 → OR 15:57